=== PATIENT | female | born 1950 | race Caucasian/White ===

== ENCOUNTER 2022-06-17 16:19 | Inpatient (IN) ==
[2022-06-17 19:38] LABS: ABS Lymphocytes 1.9 10^3/ul (1.0-4.8); ABS Monocytes 0.7 10^3/ul (0-0.8); ABS Neutrophils 4.3 10^3/ul (1.5-7.7); Hematocrit 26 % (35-47); Hemoglobin 8.2 g/dL (12.0-16.0); Lymphocyte % 27.5 %; Mean Corpuscular HGB Conc 31 g/dL (31-36); Mean Corpuscular Hemoglobin 32 pg (27-31); Mean Corpuscular Volume 101 fL (80-97); Mean Platelet Volume 8.5 fL (7.4-10.4); Nucleated Red Blood Cells % 0.1; Platelet Count 441 10^3/uL (150-450); Red Blood Count 2.59 10^6 /uL (3.70-4.87); Red Cell Distribution Width 18 % (10-15); White Blood Count 6.9 10^3/uL (3.5-10.8)
[2022-06-17] MEDS ORDERED: NS 0.9% 1000 ml BAG 1,000 ML IV ONE ×2 (19:41→22:46)
[2022-06-17 19:49] LABS: INR 1.64 (0.89-1.11)
[2022-06-17 20:11] LABS: Albumin 1.9 g/dL (3.2-5.2); C Reactive Protein 19.99 mg/L (<8.01); Calcium 7.5 mg/dL (8.6-10.3); Magnesium 1.9 mg/dL (1.9-2.7); Potassium 4.2 mmol/L (3.5-5.0); Total Bilirubin 0.5 mg/dL (0.2-1.0); Total Protein 3.9 g/dL (6.4-8.9); eGFR CKD-EPI 52.8 (>60)
[2022-06-17 23:16] LABS: ABS Lymphocytes 1.6 10^3/ul (1.0-4.8); ABS Monocytes 0.7 10^3/ul (0-0.8); ABS Neutrophils 3.8 10^3/ul (1.5-7.7); Eosinophil % 0.1 %; Hematocrit 21 % (35-47); Hemoglobin 6.8 g/dL (12.0-16.0); Lymphocyte % 25.6 %; Mean Corpuscular HGB Conc 33 g/dL (31-36); Mean Corpuscular Hemoglobin 32 pg (27-31); Mean Corpuscular Volume 98 fL (80-97); Mean Platelet Volume 8.2 fL (7.4-10.4); Nucleated Red Blood Cells % 0.1; Platelet Count 357 10^3/uL (150-450); Red Blood Count 2.15 10^6 /uL (3.70-4.87); Red Cell Distribution Width 18 % (10-15); White Blood Count 6.1 10^3/uL (3.5-10.8)
[2022-06-18 00:07] LABS: Magnesium 1.7 mg/dL (1.9-2.7)
[2022-06-18 00:10] LABS: Phosphorus 3.1 mg/dL (2.5-5.0)
[2022-06-18] MEDS ORDERED: TRAZODONE 25 MG PO PRN (00:31)
[2022-06-18] MEDS ORDERED: Pantoprazole VIAL 40 MG VIAL IV ONE (00:55)
[2022-06-18 01:42] LABS: Folate > 20.00 ng/mL (5.90-24.80)
[2022-06-18 01:56] LABS: TSH Ultra Thyroid Stim Horm 24.94 mcIU/mL (0.34-5.60); Vitamin B12 826 pg/mL (180-914)
[2022-06-18 04:33] LABS: Urine Appearance Cloudy; Urine Color Yellow
[2022-06-18 04:35] LABS: Urine Bilirubin 1+ (Small) (Negative); Urine Blood 3+ (Large) (Negative); Urine Glucose Negative (Negative); Urine Ketones 2+ (40mg/dL) (Negative); Urine Nitrite Negative (Negative); Urine Protein 2+ (100 mg/dL) (Negative); Urine Specific Gravity 1.025 (1.005-1.030); Urine Urobilinogen 0.2 (Negative) (Negative); Urine pH 5.5 (5.0-9.0)
[2022-06-18 05:14] LABS: Urine Bacteria 1+ (Absent); Urine Red Blood Cell 3+(>10/hpf) (Absent); Urine White Blood Cell 3+(>20/hpf) (Absent)
[2022-06-18] MEDS ORDERED: SYNTHROID 50 MCG PO SCH (06:00)
[2022-06-18 08:42] LABS: Anion Gap 8 mmol/L (2-11); CO2 Carbon Dioxide 21 mmol/L (22-32); Calcium 6.7 mg/dL (8.6-10.3); Chloride 110 mmol/L (101-111); Magnesium 1.7 mg/dL (1.9-2.7); Potassium 3.7 mmol/L (3.5-5.0); Sodium 139 mmol/L (135-145)
[2022-06-18 08:48] LABS: ALT 15 U/L (7-52); AST 15 U/L (13-39); Alkaline Phosphatase 119 U/L (35-149); Blood Urea Nitrogen 23 mg/dL (6-24); Glucose 68 mg/dL (70-100); Phosphorus 2.6 mg/dL (2.5-5.0); Total Protein 3.3 g/dL (6.4-8.9); eGFR CKD-EPI 79.4 (>60)
[2022-06-18] MEDS ORDERED: TIMOLOL BOTH EYES SCH (09:00)
[2022-06-18] MEDS ORDERED: PTO:Timolol 0.5% OPTH.SOL BTL BOTH EYES SCH (09:00)
[2022-06-18 09:05] LABS: Albumin < 1.7 g/dL (3.2-5.2); Albumin/Globulin Ratio 1.1 (1-3); Globulin 1.6 g/dL (2-4)
[2022-06-18 09:21] LABS: ABS Lymphocytes 1.3 10^3/ul (1.0-4.8); ABS Monocytes 0.8 10^3/ul (0-0.8); ABS Neutrophils 3.5 10^3/ul (1.5-7.7); Eosinophil % 0.4 %; Hematocrit 32 % (35-47); Hemoglobin 10.7 g/dL (12.0-16.0); Lymphocyte % 23.4 %; Mean Corpuscular HGB Conc 33 g/dL (31-36); Mean Corpuscular Hemoglobin 32 pg (27-31); Mean Corpuscular Volume 95 fL (80-97); Mean Platelet Volume 8.9 fL (7.4-10.4); Nucleated Red Blood Cells % 0.1; Platelet Count 314 10^3/uL (150-450); Red Blood Count 3.35 10^6 /uL (3.70-4.87); Red Cell Distribution Width 17 % (10-15); White Blood Count 5.7 10^3/uL (3.5-10.8)
[2022-06-18 14:29] LABS: Hematocrit 31 % (35-47); Hemoglobin 10.4 g/dL (12.0-16.0)
[2022-06-18 18:57] LABS: Free T4 0.66 ng/dL (0.61-1.12)
[2022-06-18] MEDS: Pantoprazole VIAL 40 MG VIAL IV SCH (21:07)
[2022-06-18 21:31] LABS: Hematocrit 35 % (35-47); Hemoglobin 11.9 g/dL (12.0-16.0)
[2022-06-18] MEDS: Latanoprost 0.005% 2.5 ml BTL BOTH EYES SCH (22:33)
[2022-06-19] MEDS ORDERED: Vancomycin 750 MG in NS 0.9% 250 ml 250 ML IVPB ONE (00:28)
[2022-06-19] MEDS ORDERED: Vancomycin per Pharmacy 1 EA NOTE FOLLOW UP SCH (01:00)
[2022-06-19 05:25] LABS: ABS Lymphocytes 1.5 10^3/ul (1.0-4.8); ABS Monocytes 0.9 10^3/ul (0-0.8); ABS Neutrophils 4.5 10^3/ul (1.5-7.7); Eosinophil % 0.5 %; Hematocrit 31 % (35-47); Hemoglobin 10.2 g/dL (12.0-16.0); Lymphocyte % 21.5 %; Mean Corpuscular HGB Conc 33 g/dL (31-36); Mean Corpuscular Hemoglobin 32 pg (27-31); Mean Corpuscular Volume 95 fL (80-97); Mean Platelet Volume 8.3 fL (7.4-10.4); Nucleated Red Blood Cells % 0.1; Platelet Count 305 10^3/uL (150-450); Red Blood Count 3.24 10^6 /uL (3.70-4.87); Red Cell Distribution Width 17 % (10-15); White Blood Count 6.9 10^3/uL (3.5-10.8)
[2022-06-19 06:40] LABS: Calcium 6.8 mg/dL (8.6-10.3); Magnesium 1.7 mg/dL (1.9-2.7); Potassium 3.5 mmol/L (3.5-5.0); eGFR CKD-EPI 70.7 (>60)
[2022-06-19] MEDS ORDERED: Potassium Chloride LIQUID 20 MEQ/15 ML LIQUID PO ONE (07:37)
[2022-06-19] MEDS ORDERED: Calcium Gluconate 2 GM in NS 0.9% 100 ml BAG 100 ML IV ONE (08:00)
[2022-06-19] MEDS: KCL 20 MEQ/100 ML IVPREMIX 20 MEQ/100 ML BAG IV SCH ×3 (08:34→18:37)
[2022-06-19] MEDS: Pantoprazole VIAL 40 MG VIAL IV SCH ×2 (08:35→22:22)
[2022-06-19] MEDS: PTO:Timolol 0.5% OPTH.SOL BTL BOTH EYES SCH (11:05)
[2022-06-19] MEDS: Ampicillin ADVAN 2 GM in NS 0.9% 100 ml BAG 100 ML IVPB SCH ×3 (11:11→22:43)
[2022-06-19] MEDS: Enoxaparin 60 MG/0.6 ML SYR SUBCUT SCH ×2 (12:33→22:40)
[2022-06-19] MEDS ORDERED: Vancomycin 750 MG in NS 0.9% 250 ML IVPB SCH (14:00)
[2022-06-19] MEDS: Latanoprost 0.005% 2.5 ml BTL BOTH EYES SCH (22:22)
[2022-06-20] MEDS: Ampicillin ADVAN 2 GM in NS 0.9% 100 ml BAG 100 ML IVPB SCH ×3 (05:52→17:08)
[2022-06-20 06:17] LABS: ABS Lymphocytes 1.9 10^3/ul (1.0-4.8); ABS Monocytes 1.2 10^3/ul (0-0.8); ABS Neutrophils 4.9 10^3/ul (1.5-7.7); Eosinophil % 0.3 %; Hematocrit 36 % (35-47); Hemoglobin 12.1 g/dL (12.0-16.0); Lymphocyte % 23.8 %; Mean Corpuscular HGB Conc 33 g/dL (31-36); Mean Corpuscular Hemoglobin 32 pg (27-31); Mean Corpuscular Volume 96 fL (80-97); Mean Platelet Volume 8.6 fL (7.4-10.4); Nucleated Red Blood Cells % 0.1; Platelet Count 358 10^3/uL (150-450); Red Blood Count 3.81 10^6 /uL (3.70-4.87); Red Cell Distribution Width 17 % (10-15)
[2022-06-20 06:49] LABS: Calcium 7.2 mg/dL (8.6-10.3); Magnesium 1.6 mg/dL (1.9-2.7); Potassium 4.6 mmol/L (3.5-5.0); eGFR CKD-EPI 61.3 (>60)
[2022-06-20] MEDS ORDERED: Calcium Gluconate 2 GM in NS 0.9% 100 ml BAG 100 ML IV ONE (07:34)
[2022-06-20] MEDS ORDERED: Magnesium Sulfate 2 gm BAG 2 GM/50 ML BAG IVPB ONE (07:34)
[2022-06-20] MEDS: Pantoprazole VIAL 40 MG VIAL IV SCH (08:51)
[2022-06-20] MEDS: PTO:Timolol 0.5% OPTH.SOL BTL BOTH EYES SCH (08:52)
[2022-06-20] MEDS: Enoxaparin 60 MG/0.6 ML SYR SUBCUT SCH (12:25)
[2022-06-20] MEDS ORDERED: Vancomycin Trough Check NOTE FOLLOW UP ONE (13:30)
[2022-06-20] MEDS: Latanoprost 0.005% 2.5 ml BTL BOTH EYES SCH (20:37)
[2022-06-21] MEDS: Ampicillin ADVAN 2 GM in NS 0.9% 100 ml BAG 100 ML IVPB SCH ×3 (00:04→11:21)
[2022-06-21 06:17] LABS: Hematocrit 33 % (35-47); Hemoglobin 10.6 g/dL (12.0-16.0); Mean Corpuscular HGB Conc 33 g/dL (31-36); Mean Corpuscular Hemoglobin 32 pg (27-31); Mean Corpuscular Volume 97 fL (80-97); Mean Platelet Volume 8.9 fL (7.4-10.4); Platelet Count 307 10^3/uL (150-450); Red Blood Count 3.37 10^6 /uL (3.70-4.87); Red Cell Distribution Width 18 % (10-15); White Blood Count 7.2 10^3/uL (3.5-10.8)
[2022-06-21 06:54] LABS: Calcium 7.1 mg/dL (8.6-10.3); Magnesium 1.9 mg/dL (1.9-2.7); Phosphorus 2.4 mg/dL (2.5-5.0); Potassium 4.2 mmol/L (3.5-5.0); eGFR CKD-EPI 57.1 (>60)
[2022-06-21] MEDS ORDERED: Potassium Acid Phos 500 mg TAB PO ONE (07:19)
[2022-06-21 07:53] LABS: ABS Lymphocytes 1.8 10^3/ul (1.0-4.8); ABS Neutrophils 4.4 10^3/ul (1.5-7.7); Eosinophil % 0.7 %; Lymphocyte % 24.5 %; Nucleated Red Blood Cells % 0.1; RBC Morphology Normal (Normal)
[2022-06-21] MEDS: PTO:Timolol 0.5% OPTH.SOL BTL BOTH EYES SCH (09:14)
[2022-06-21 11:51] VITALS: BP 84/54
[2022-06-21] MEDS ORDERED: Enoxaparin 80 MG/0.8 ML SYR SUBCUT SCH (12:00)
== END 2022-06-21 14:50 | disposition home health service (06) | DRG 811 ==
LOC: ED 16:19 → SUATTDRO 06-18 00:29 → EDHOLD 06-18 00:29 → MED 06-18 03:03
PROVIDERS: ADMIT Internal Medicine; ATTEND Internal Medicine